=== PATIENT | female | born 1995 | race Two or more races ===

== ENCOUNTER 2025-01-01 16:40 | Emergency (ER) | payer MEDICAID, OTHER ==
[~2025-01-01] VITALS: Ht 160 cm; Wt 71.3 kg
--- NOTE | 2025-01-01 17:27 | DVH ---
EXAM: XY R HAND 3 VIEW XRAY CLINICAL HISTORY: INJURY COMPARISON: None TECHNIQUE: XY R HAND 3 VIEW XRAY Findings/Impression: 3 views of the right hand. Mildly displaced oblique fracture of the distal 5th metacarpal. Mild soft tissue edema. There is no evidence of dislocation, blastic, or lytic lesions. No radiopaque foreign bodies.
--- NOTE | 2025-01-01 20:34 | ED.PDOC ---
Areli. trauma (HPI) HPI Comments 29 y.o female presents to the ED with right hand pain s/p blunt trauma. Patient reports the the injury occurred while descending a small slide. As she was adjusting her long skirt while sliding, her right hand region became forcibly impacted against the bottom edge of the slide, resulting in blunt trauma. Patient presents with bruising, swelling and limited range of motion to metacarpal region. She is able to bend her hand but with restricted movement duet o pain. She denies any numbness, tingling or open wounds. Chief Complaint: Upper Extremity Time Seen by MD: 19:54 Primary Care Provider: TAE Reddy notes: Nurses Notes, Medications, Allergies Allergies: Coded Allergies: NO KNOWN ALLERGIES (Unverified , 01/01/25) Information Source: Patient Mode of Arrival: Ambulatory Severity: Moderate Timing: Hours Duration: Since onset Location: (R) Hand Location of laceration: None Mechanism: Blunt trauma Associated signs and symtoms: Other Past Medical History PAST MEDICAL HISTORY: Denies Surgical History: Denies all surgeries HOSPICE CARE TRANSITIONS COORDINATOR History: No Pertinent HOSPICE CARE TRANSITIONS COORDINATOR History Family History Family History: Reviewed,noncontributory to illness Social History Smoker: Non-Smoker Alcohol: Denies ETOH Use Drugs: Denies Drug Use Constitutional: denies: chills, diaphoresis, fatigue, fever, malaise, sweats, weakness, others EENTM: denies: blurred vision, double vision, ear bleeding, ear discharge, ear drainage, ear pain, ear ringing, eye pain, eye redness, hearing loss, mouth pain, mouth swelling, nasal discharge, nose bleeding, nose congestion, nose pain, photophobia, tearing, throat pain, throat swelling, voice changes, others Respiratory: denies: cough, hemoptysis, orthopnea, SOB at rest, shortness of breath, SOB with excertion, stridor, wheezing, others Cardiovascular: denies: chest pain, dizzy spells, diaphoresis, Dyspnea on exertion, edema, irregular heart beat, left arm pain, lightheadedness, palpitations, PND, syncope, others Gastrointestinal: denies: abdomen distended, abdominal pain, blood streaked bowels, constipated, diarrhea, dysphagia, difficulty swallowing, hematemesis, melena, nausea, poor appetite, poor fluid intake, rectal bleeding, rectal pain, vomiting, others Genitourinary: denies: abnormal vagina bleeding, burning, dyspareunia, dysuria, flank pain, frequency, hematuria, incontinence, pain, , vagina discharge, urgency, others Neurological: denies: dizziness, fainting, headache, left sided numbness, left sided weakness, numbness, paresthesia, pre-existing deficit, right sided numbness, right sided weakness, seizure, speech problems, tingling, tremors, weakness, others Musculoskeletal: denies: back pain, gout, joint pain, joint swelling, muscle pain, muscle stiffness, neck pain, others Integumetry: reports: others (right hand/thumb pain ); denies: bruises, change in color, change in hair/nails, dryness, laceration, lesions, lumps, rash, wounds Allergic/Immunocompromised: denies: Difficulty Healing, Frequent Infections, Hives, Itching, others Hematologic/Lymphatic: denies: anemia, blood clots, easy bleeding, easy bruising, swollen glands, others Endocrine: denies: excessive hunger, excessive sweating, excessive thirst, excessive urination, flushing, intolerance to cold, intolerance to heat, unexplained weight gain, unexplained weight loss, others Psychiatric: denies: anxiety, bipolar disorder, depression, hopeless, panic disorder, schizophrenia, sleepless, suicidal, others All Other Systems: Reviewed and Negative Physical Exam General Appearance: No Apparent Distress, Normal HEENT: Normal ENT Inspection, Pharynx Normal, TMs Normal Neck: Full Range of Motion, Non-Tender, Normal, Normal Inspection Respiratory: Chest Non-Tender, Lungs Clear, No Accessory Muscle Use, No Res piratory Distress, Normal Breath Sounds Cardiovascular: No Edema, No JVD, No Murmur, No Gallop, Normal Peripheral Pulses, Regular Rate/Rhythm Breast Exam: Deferred Gastrointestinal: No Organomegaly, Non Tender, No Pulsatile Mass, Normal Bowel Sounds, Soft Genitalia: Deferred Pelvic: Deferred Rectal: Deferred Extremities: No calf tenderness, Normal capillary refill, Normal inspection, Normal range of motion, No pedal edema, Other (Right hand with evidence of mild swelling and tenderness to palpation to the 5th metacarpal area, no open wounds, 2+ radial pulse, sensation intact to light touch throughout, full range of motion of all fingers, wrist, hand, elbow and shoulder. Compartments soft. No other signs of trauma or infection.) Musculoskeletal : Apperance: Normal Neurologic: Alert, chemist assistant II-XII nml as Tested, No Motor Deficits, Normal Affect, Normal Mood, No Sensory Deficits Cerebellar Function: Normal Reflexes: Normal Skin: Dry, Normal Color, Warm Lymphatic: No Adenopathy Was a procedure done? Was a procedure done?: No Differential Diagnosis Multiple Trauma: Fractures, Contusion, Other (Open fracture, compartment syndrome) X-Ray, Labs, Meds, VS Vital Signs Date Time Temp Pulse Resp B/P (MAP) Pulse Ox O2 Delivery O2 Flow Rate FiO2 01/01/25 21:04 85 16 98 Room Air* 0 21 01/01/25 21:03 80 14 120/85 (97) 96 01/01/25 16:48 98.1 77 16 122/81 (95) 100 X-Ray, Labs, Meds, VS Comment Patient presents with acute closed fracture of the fifth metacarpal. Patient is hemodynamically stable, neurovascularly intact, and without evidence of compartment syndrome at this time. Fracture was splinted with ulnar gutter splint adequate cap refill and normal neurovascular exam after splinting. Patient to be discharged home with supportive care, RICE therapy, pain control and splint care recommendations. Patient to seek follow-up with primary care for in-plan orthopedic referral within one week for surgical consideration and follow-up. Reviewed return precautions including but not limited to worsening pain, numbness, weakness, skin breakdown from the splint, or any other concerning symptoms. Patient was discharged home in stable condition in agreement with the plan with all questions answered. Differential includes but is not limited to: Open fracture, closed fracture, neurovascular injury, compartment syndrome, strain/sprain, contusion, laceration, septic joint Images Reviewed?: Images reviewed and evaluated by me Time of 1ST Reevaluation: 20:29 Reevaluation 1ST: Unchanged Patient Education/Counseling: Diagnosis, Treatment, Prognosis Family Education/Counseling: No Family Present Departure 1 Departure Time of Disposition: 23:11 Impression: Primary Impression: Boxers fracture Disposition: 01 HOME / SELF CARE / HOMELESS Condition: Stable Critical Care Note Critical Care Time?: No Stability Stability form required: No I personally scribed for LISA MONSIVAIS MD ([email or web address]) on 01/01/25 at 20:34. Electronically submitted by Carmelita Emmanuel ([facility]). LISA MONSIVAIS MD Jan 01, 2025 20:34
[2025-01-01 21:03] VITALS: BP 120/85
[2025-01-01 21:04] VITALS: PULSE 85; RESP 16; O2SAT 98
== END 2025-01-01 21:06 | disposition home or self-care (01) ==
LOC: ER 16:40
DX: S62.396A Other fracture of fifth metacarpal bone, right hand, initial encounter for closed fracture (principal); X58.XXXA Exposure to other specified factors, initial encounter; Y93.89 Activity, other specified; Y92.89 Other specified places as the place of occurrence of the external cause; Y99.8 Other external cause status
CPT/HCPCS: 29125; 73130